=== PATIENT | female | born 1940 | race Caucasian/White ===

== ENCOUNTER 2021-03-02 07:17 | Day surgery (SDC) | payer MEDICARE ==
[~2021-03-02] VITALS: Ht 152.4 cm; Wt 43.5 kg
[2021-03-02] VITALS (7 sets, daily range): BP systolic 156–179; BP diastolic 80–87
[~2021-03-02 07:17] MED LIST: ASPI81TA52 PO; ATOR10TA70 PO; CLOP75TA15 PO; GABA-532 PO; TRAM50TA2 PO
[2021-03-02] MEDS ORDERED: ibuprofen (08:15)
[2021-03-02] MEDS ORDERED: ASPI-10 PO (08:15)
[2021-03-02] MEDS ORDERED: LIDOcaine/PRILOcaine 5gm cream TP ONE (08:41)
== END 2021-03-02 09:25 | disposition home or self-care (01) ==
LOC: SSTAY O 07:17
PROVIDERS: ATTEND Radiology Vascular & Interventional Radiology
DX: R59.0 Localized enlarged lymph nodes (principal); C77.4 Secondary and unspecified malignant neoplasm of inguinal and lower limb lymph nodes; Z88.4 Allergy status to anesthetic agent; Z79.01 Long term (current) use of anticoagulants; Z79.899 Other long term (current) drug therapy; Z90.710 Acquired absence of both cervix and uterus; Z90.49 Acquired absence of other specified parts of digestive tract; Z98.890 Other specified postprocedural states; Z72.89 Other problems related to lifestyle; Z82.3 Family history of stroke; Z82.49 Family history of ischemic heart disease and other diseases of the circulatory system
CPT/HCPCS: 38505; 76942